=== PATIENT | male | born 1980 | race Caucasian/White ===

== ENCOUNTER 2018-03-16 00:48 | Emergency (ER) | payer MEDICARE ==
[~2018-03-16] VITALS: Ht 175.3 cm; Wt 108.9 kg
[2018-03-16 01:04] VITALS: Ht 175.3 cm; Wt 108.9 kg
[2018-03-16] MEDS ORDERED: TIROSINT100 MCG PO (01:05)
[2018-03-16] MEDS ORDERED: COZAAR100 MG PO (01:05)
[2018-03-16] MEDS ORDERED: [UNRECOGNIZED DRUG - OTHER] (01:05)
[2018-03-16] MEDS ORDERED: NORVASC10 MG PO (01:05)
[2018-03-16 03:55] LABS: HEMATOCRIT 48.7 % (42.0-54.0); MCH 32.3 pg (26.0-34.0); MCV 87.4 fL (80.0-100.0); PLATELET COUNT 200 10x3/uL (130-400); RBC 5.57 10x6/uL (4.20-6.10); RDW 13.3 % (11.5-14.5); WBC 20.3 10x3/uL (4.8-10.8)
[2018-03-16 03:59] LABS: APPEARANCE CLEAR (CLEAR); BILIRUBIN NEGATIVE (NEGATIVE); COLOR YELLOW (YELLOW); GLUCOSE NEGATIVE (NEGATIVE); KETONE NEGATIVE (NEGATIVE); NITRITE NEGATIVE (NEGATIVE); PROTEIN NEGATIVE (NEGATIVE); SPECIFIC GRAVITY 1.005 (1.005-1.020); UROBILINOGEN NORMAL (NORMAL)
[2018-03-16 04:01] LABS: INR 1.03 (0.85-1.17); PROTIME 13.1 SECONDS (11.6-15.0)
[2018-03-16 04:18] LABS: EOSINOPHILS 1 % (0-7); LYMPHOCYTES 10 % (15-50); MONOCYTES 7 % (2-11); NEUTROPHILS 82 % (40-80)
[2018-03-16 04:19] LABS: PLATELET ESTIMATE NORMAL
[2018-03-16 04:23] LABS: UDS - AMPHET NEGATIVE QUAL (NEGATIVE); UDS - BARB NEGATIVE QUAL (NEGATIVE); UDS - BENZO NEGATIVE QUAL (NEGATIVE); UDS - COCAINE NEGATIVE QUAL (NEGATIVE); UDS - OPIATE NEGATIVE QUAL (NEGATIVE); UDS - PCP NEGATIVE QUAL (NEGATIVE); UDS - THC NEGATIVE QUAL (NEGATIVE)
[2018-03-16 04:26] LABS: ALBUMIN 3.7 g/dL (3.4-5.0); ALKALINE PHOSPHATASE 47 U/L (46-116); ALT (SGPT) 40 U/L (10-68); BILIRUBIN - TOTAL 0.38 mg/dL (0.2-1.3); CALC OSMOLALITY 280 mosm/kg (275-300); CALCIUM 8.7 mg/dL (8.5-10.1); CARBON DIOXIDE 30.5 mmol/L (21.0-32.0); CHLORIDE - SERUM 105 mmol/L (98-107); CREATININE - SERUM 1.1 mg/dL (0.6-1.3); GLUCOSE 90 mg/dL (74-106); PROTEIN - SERUM 7.3 g/dL (6.4-8.2); SODIUM 142 mmol/L (136-145); THYROID STIMULATING HORMONE 2.29 uIU/mL (0.36-3.74); UREA NITROGEN 6 mg/dL (7-18); eGFR NON AFRICAN AMERICAN 80 mL/min (90-120)
[2018-03-16 04:27] LABS: CKMB 4.6 U/L (0.0-3.6); CREATINE KINASE 1518 UL (21-232); POTASSIUM - SERUM 1.8 mmol/L (3.5-5.1)
[2018-03-16 06:39] LABS: APPEARANCE - CSF CLEAR; RBC - CSF 16 cmm (0-0)
[2018-03-16 07:09] LABS: GLUCOSE - CSF 72 MG/DL (40-75); PROTEIN - CSF 71 MG/DL (12-60)
[2018-03-16 09:41] VITALS: BP 152/96
[2018-03-18 22:15] LABS: ACID FAST SMEAR Negative (()); AFB SPECIMEN PROCESSING Not Indicated (())
[2018-03-19 14:30] LABS: FUNGUS STAIN Final report (())
[2018-03-19 21:08] LABS: LEAD None Detected ug/dL (0-4)
[2018-03-26 10:23] LABS: VIRAL - RESULT No virus isolated. (())
[2018-04-14 11:15] LABS: FUNGUS MYCOLOGY CULTURE Final report (())
== END 2018-03-16 09:41 | disposition other institution (70) ==
LOC: D.ER 00:48
PROVIDERS: Family Medicine
DX: E87.6 Hypokalemia (principal); R53.1 Weakness; I10 Essential (primary) hypertension; F17.200 Nicotine dependence, unspecified, uncomplicated